=== PATIENT | male | born 2000 | race African-American/Black ===

== ENCOUNTER 2022-09-11 08:31 | Emergency (ER) | payer MEDICAID ==
[~2022-09-11] VITALS: Ht 200 cm; Wt 189.0 kg
[~2022-09-11 08:31] MED LIST: AC325T PO; ACET500C4 PO; ALB0.5V; ALBU0.8322 IH; ALBU8.5H2 INH; AUGMENTIN; AZIT-21 PO; AZIT250T81 PO; BENZ100C18 PO; BISM1CAP PO; CEFD300C16 PO; CEFD300C3 PO; CETI10CA PO; CETI10TA17 PO; CETI1SOL11; CIPR7.5D2 OT; CPR500T PO; DEXM15CP PO; EAR DROPS; ERYTHROMYCIN; FAMO-106 PO; FLT05NA16; FLT05NA16 NS; FLT11013 IH; FLT11013 INH; FLUT50DI INH; GUAI100S PO; IBP200T PO; IBP800T PO; IBUP120O2 PO; LVB125NB3 INH; METH4TAB PO; MONT5TAB11 PO; NAPR-689 PO; NF-OLOP5ML OU; NF-XOP-HFA IH; OMEP40CA36 PO; ONDA4TAB11 PO; OXCA300T PO; PATANOL; PATANOL OU; PATENOL OU; POLY119P PO; POLY255P PO; POTA10CA43 PO; PRD20T PO; PRED50TA PO; PROM25SU8 PR; RNT150T PO; RT-FLOV110 INH; TRAM50TA2 PO; [UNRECOGNIZED DRUG - CODE] INH; [UNRECOGNIZED DRUG - CODE] PO
[2022-09-11 08:46] VITALS: BP 137/81
[2022-09-11] MEDS ORDERED: TETANUS,DIPTH,PERTUSS P/F (BOOSTRIX) 0.5 ML VIAL IM ONE (09:15)
[2022-09-11] MEDS ORDERED: DOXY-444 PO (09:17)
--- NOTE | 2022-09-11 09:18 | ED Lower Extremity ---
General Chief Complaint: Lower Extremity Stated Complaint: RT FOOT INJ | STEPPED ON GLASS Nursing Triage Note: PT AMB TO FT1 WITH COMPLAINT OF GLASS IN RIGHT FOOT. STATES STEPPED ON GLASS ABOUT AN HOUR [employer] AND IS CONCERNED THERE IS STILL A PIECE IN FOOT. Source: patient Exam Limitations: no limitations History of Present Illness Date Seen by Provider: Sep 11, 2022 Time Seen by Provider: 09:00 Initial Comments 21-year-old male presents for right foot injury. He has laceration plantar surface of his foot when he stepped on glass this morning from a broken jar. He denies any other injury. He is unsure when his last tetanus shot was. Mother states she saw glass in there she "got it all out." Allergies and Home Medications Allergies Coded Allergies: Penicillins (Verified Allergy, Mild, 11/03/12) Patient Home Medication List Home Medication List Reviewed: Yes Acetaminophen (Pain Reliever) 500 Mg Capsule, 1,000 MG PO Q8H PRN for PAIN, (Reported) Entered as Reported by: ANJALI CHAPA on 07/31/14 1622 Cetirizine Hcl (Zyrtec) 10 Mg Capsule, 10 MG PO DAILY, (Reported) Entered as Reported by: CHEYENNE NATION on 11/03/12 1728 Dexmethylphenidate Hcl (Focalin Xr) 15 Mg Cpmp.50.50, 15 MG PO DAILY, (Reported) Entered as Reported by: ELENO PERALTA on 07/13/14 1525 Doxycycline Monohydrate (Doxycycline Monohydrate) 100 Mg Capsule, 100 MG PO BID Prescribed by: SHAMA ABDULLAHI MD on 09/11/22 0917 Fluticasone Propionate (Flonase 0.05% Nasal [place]) 16 Gm [place], 2 SPRAYS NS BID PRN for ALLERGIES, (Reported) Entered as Reported by: KEITH ERNST on 12/07/13 1446 Fluticasone Propionate (Flovent 110 Mcg Common Canister) 1 Puff Puff, 4 PUFF INH BID, (Reported) Entered as Reported by: KEITH ERNST on 12/07/13 1446 Levalbuterol Hcl (Xopenex) 1.25 Mg/3 Ml Nebu, 1 VIAL INH Q4H PRN for SHORTNESS OF BREATH, (Reported) Entered as Reported by: ARMEN SPEARS on 11/05/12 1117 Levalbuterol Tartrate (Xopenex Hfa) 15 Gm Aer.w.adap, 4 PUFF IH Q4H PRN for SHORTNESS OF BREATH, (Reported) Entered as Reported by: ANJALI CHAPA on 07/31/14 1612 Montelukast Sodium (Singulair) 5 Mg Tab.chew, 5 MG PO DAILY, (Reported) Entered as Reported by: ARMEN SPEARS on 11/05/12 1109 Naproxen (Naproxen) 500 Mg Tablet, 500 MG PO BID PRN for PAIN/SWELLING, (Reported) Entered as Reported by: ANJALI CHAPA on 07/31/14 1603 Olopatadine Hcl (Patanol 0.1%) 5 Ml Drops, 2 DROP OU BID PRN for ALLERGIES, (Reported) Entered as Reported by: ANJALI CHAPA on 07/31/14 1622 Omeprazole (Omeprazole) 40 Mg Capsule.dr, 40 MG PO BID, (Reported) Entered as Reported by: KEITH ERNST on 12/07/13 1446 Ondansetron (Ondansetron Odt) 4 Mg Tab.rapdis, 4 MG PO Q8H PRN for NAUSEA, (Reported) Entered as Reported by: ANJALI CHAPA on 07/31/14 160 Oxcarbazepine (Oxcarbazepine) 300 Mg Tablet, 600 MG PO 0900, 2100, (Reported) Entered as Reported by: ELENO PERALTA on 07/13/14 1525 Polyethylene Glycol 3350 (Polyethylene Glycol 3350) 255 Gm Powder, 119 GM PO D AILY, (Reported) Entered as Reported by: ANJALI CHAPA on 08/17/14 1616 Potassium Chloride (Potassium Chloride 10 Meq Cap) 10 Meq Capsule.sa, 10 MEQ PO DAILY WITH FOOD, (Reported) Entered as Reported by: KEITH ERNST on 12/07/13 1446 Promethazine Hcl (Promethegan) 25 Mg Supp.rect, 12.5 MG ID Q6H PRN for NAUSEA/V OMITING, (Reported) Entered as Reported by: ANJALI CHAPA on 07/31/14 1603 Review of Systems Constitutional: no symptoms reported EENTM: no symptoms reported Respiratory: no symptoms reported Cardiovascular: no symptoms reported Gastrointestinal: no symptoms reported Genitourinary: no symptoms reported Musculoskeletal: other (Foot laceration) Skin: other (Foot laceration) Psychiatric/Neurological: No Symptoms Reported Past Teztxts-Jlnicz-Eaeeri Hx Patient Social History Tobacco Use?: No Use of E-Cig and/or Vaping dev: No Substance use?: No Alcohol Use?: No Pt feels they are or have been: No Immunizations Up To Date Tetanus Booster (TDap): Less than 5yrs PED Vaccines UTD: Yes Seasonal Allergies Seasonal Allergies: Yes Past Medical History Asthma, Pneumonia Reproductive Disorders: No Sexually Transmitted Disease: No HIV/AIDS: No Fibromyalgia Chronic Ear Infection, Tonsilitis Anxiety, Depression Adverse Reaction/Blood Tranf: No Family Medical History Asthma 19 FATHER 19 MOTHER Cardiovascular disease 19 FATHER Cervical ca Cervical cancer Diabetes mellitus 19 FATHER No Pertinent Family Hx Physical Exam Vital Signs Vital Signs - First Documented 09/11/22 08:46 Temp 36.8 Pulse 73 Resp 16 B/P (MAP) 137/81 (99) Pulse Ox 100 O2 Delivery Room Air Capillary Refill : Less Than 3 Seconds Height, Weight, BMI Height: 5'10.00" Weight: 254lbs. 2.0oz. 115.366331uc; 47.00 BMI Method:Stated General Appearance: WD/WN, no apparent distress HEENT: normal ENT inspection, pharynx normal Neck: non-tender, supple Cardiovascular: regular rate, rhythm, no murmur Respiratory: lungs clear, normal breath sounds Gastrointestinal: normal bowel sounds, soft, no organomegaly Feet: right foot soft tissue tenderness (1 cm laceration plantar surface of the left foot in sole of the foot. Neurovascular motor and sensory intact. Very superficial.) Neurologic/Psychiatric: alert, normal mood/affect, oriented x 3 Skin: other (Laceration as described above) Progress/Results/Core Measures Results/Orders My Orders Orders - SHAMA ABDULLAHI DO Dipht,Pertuss(Acell),Tet Adult (Boostrix (09/11/22 09:15) Medications Given in ED Current Medications Medications Dose Ordered Sig/Joey Route Start Time Stop Time Status Last Admin Dose Admin Diphtheria/ Tetanus/Acell Pertussis 0.5 ml ONCE ONCE IM 09/11/22 09:15 09/11/22 09:16 DC 09/11/22 09:31 0.5 ML Vital Signs/I&O 09/11/22 08:46 Temp 36.8 Pulse 73 Resp 16 B/P (MAP) 137/81 (99) Pulse Ox 100 O2 Delivery Room Air Blood Pressure Mean: 99 Departure Communication (Admissions) Patient is hemodynamically stable. Does not require stitches. No indication for tenderness, bony involvement. No evidence for retained foreign body. No indication for imaging. Wound cleansed, tetanus updated he is discharged with antibiotics and close follow-up. Impression Primary Impression: Laceration of right foot Qualified Codes: S91.311A - Laceration without foreign body, right foot, initial encounter Disposition: HOME, SELF-CARE Condition: Stable Departure-Patient Inst. Referrals: DOUG BALDERAS MD (PCP/Family) Primary Care Physician Patient Instructions: Wound Care ED Add. Discharge Instructions: Your tetanus shot was updated in the emergency department today. Your wound does not require stitches but keep it clean. You may shower as normal but do not submerge tomorrow like hot tabs or swimming pools. Take the antibiotics as prescribed until they are gone to avoid infection. Return to the emergency department for any severe concerns, specifically if you have redness that spreading from the area, drainage looks like pus. Follow-up with your primary doctor for any nonemergent needs. All discharge instructions reviewed with patient and/or family. Voiced understanding. Scripts Doxycycline Monohydrate (Doxycycline Monohydrate) 100 Mg Capsule 100 MG PO BID for 7 Days, #14 CAP Prov: SHAMA ABDULLAHI DO 09/11/22 Work/School Note: Family Work Note Patient Received Medical Care In the Emergency Department On: Sep 11, 2022 Patient Will Be Able to Return to Work/School On: Sep 11, 2022 SHAMA ABDULLAHI DO Sep 11, 2022 09:18
== END 2022-09-11 09:35 | disposition home or self-care (01) ==
LOC: EDUNIT# 08:31 → ER 08:35
DX: S91.311A Laceration without foreign body, right foot, initial encounter (principal); Z23 Encounter for immunization; W25.XXXA Contact with sharp glass, initial encounter
CPT/HCPCS: 90715

== ENCOUNTER 2023-05-20 00:31 | Emergency (ER) | payer MEDICAID ==
[~2023-05-20] VITALS: Ht 195 cm; Wt 186.8 kg
[~2023-05-20 00:31] MED LIST changes: +DOXY-444 PO
[2023-05-20 00:45] VITALS: BP 176/110
[2023-05-20] MEDS ORDERED: LACTATED RINGERS 1,000 ML 1,000 ML IV ONE (01:00)
[2023-05-20 01:18] LABS: BASOPHILS % (AUTO) 0 % (0-10); EOSINOPHILS # (AUTO) 0.1 10^3/uL (0.0-0.3); EOSINOPHILS % (AUTO) 1 % (0-10); HEMATOCRIT 49 % (40-54); HEMOGLOBIN 15.2 g/dL (13.3-17.7); LYMPHOCYTES # (AUTO) 2.7 10^3/uL (1.0-4.0); LYMPHOCYTES % (AUTO) 26 % (12-44); MEAN CORPUSCULAR HEMOGLOBIN 26 pg (25-34); MEAN CORPUSCULAR HGB CONC 31 g/dL (32-36); MEAN CORPUSCULAR VOLUME 85 fL (80-99); MEAN PLATELET VOLUME 11.8 fL (9.0-12.2); MONOCYTES # (AUTO) 1.1 10^3/uL (0.0-1.0); MONOCYTES % (AUTO) 11 % (0-12); NEUTROPHILS # (AUTO) 6.3 10^3/uL (1.8-7.8); NEUTROPHILS % (AUTO) 61 % (42-75); PLATELET COUNT 253 10^3/uL (130-400); WHITE BLOOD COUNT 10.2 10^3/uL (4.3-11.0)
[2023-05-20 01:41] LABS: ALBUMIN 4.3 GM/DL (3.2-4.5); BILIRUBIN,TOTAL 0.3 MG/DL (0.1-1.0); CALCIUM 9.3 MG/DL (8.5-10.1); CREATININE SERUM 1.08 MG/DL (0.60-1.30); ERYTHROCYTE SEDIMENTATION RATE 1 MM/HR (0-15); MAGNESIUM 2.2 MG/DL (1.6-2.4); POTASSIUM 5.1 MMOL/L (3.6-5.0); TOTAL PROTEIN 7.4 GM/DL (6.4-8.2)
[2023-05-20] MEDS ORDERED: NS 100 ML (IVPB) BAG IV ONE (02:15)
[2023-05-20] MEDS ORDERED: HOLD METFORMIN - RECEIVED CONTRAST 20 ML VIAL IV SCH (02:15)
[2023-05-20] MEDS ORDERED: IOHEXOL 350 MG/ML 100 ML (OMNIPAQUE 350) VIAL IV ONE (02:15)
[2023-05-20 02:30] LABS: BACTERIA,URINE NEGATIVE /HPF; BILIRUBIN,URINE NEGATIVE (NEGATIVE); CLARITY,URINE CLEAR; COLOR,URINE YELLOW; GLUCOSE, URINE (UA) NEGATIVE (NEGATIVE); KETONES,URINE NEGATIVE (NEGATIVE); LEUKOCYTE ESTERASE ,URINE NEGATIVE (NEGATIVE); NITRITE,URINE NEGATIVE (NEGATIVE); PROTEIN,URINE NEGATIVE (NEGATIVE)
[2023-05-20 02:33] LABS: AMPHETAMINE SCREEN, URINE NEGATIVE (NEGATIVE); BARBITURATE SCREEN URINE NEGATIVE (NEGATIVE); BENZODIAZEPINES SCREEN URINE NEGATIVE (NEGATIVE); CANNABINOID SCREEN, URINE POSITIVE (NEGATIVE); COCAINE SCREEN URINE NEGATIVE (NEGATIVE); METHADONE STAT NEGATIVE (NEGATIVE); OPIATE SCREEN URINE NEGATIVE (NEGATIVE); OXYCODONE STAT NEGATIVE (NEGATIVE); PROPOXYPHENE STAT NEGATIVE (NEGATIVE); TRICYCLIC ANTIDEPRESSANTS SCRE NEGATIVE (NEGATIVE)
--- NOTE | 2023-05-20 03:25 | ED Abdominal Pain ---
General Chief Complaint: Abdominal/GI Problems Stated Complaint: ABD PX Nursing Triage Note: PATIENT AMBULATORY TO ROOM WITH COMPLAINT OF ABDOMINAL PAIN THAT WOKE HIM FROM SLEEP. STATES AROUND 2140 LAST NIGHT. DENIES VOMITTING/DIARRHEA. PATIENT DOES STATE HE IS NAUSEATED. Source of Information: Patient, Other (MOTHRE) History of Present Illness Date Seen by Provider: May 20, 2023 Allergies and Home Medications Allergies Coded Allergies: Penicillins (Verified Allergy, Mild, 11/03/12) Patient Home Medication List Acetaminophen (Pain Reliever) 500 Mg Capsule, 1,000 MG PO Q8H PRN for PAIN, (Reported) Entered as Reported by: ANJALI CHAPA on 07/31/14 1622 Cetirizine Hcl (Zyrtec) 10 Mg Capsule, 10 MG PO DAILY, (Reported) Entered as Reported by: CHEYENNE NATION on 11/03/12 1728 Dexmethylphenidate Hcl (Focalin Xr) 15 Mg Cpmp.50.50, 15 MG PO DAILY, (Reported) Entered as Reported by: ELENO PERALTA on 07/13/14 1525 Doxycycline Monohydrate (Doxycycline Monohydrate) 100 Mg Capsule, 100 MG PO BID Prescribed by: SHAMA ABDULLAHI MD on 09/11/22 0917 Fluticasone Propionate (Flonase 0.05% Nasal [place]) 16 Gm [place], 2 SPRAYS NS BID PRN for ALLERGIES, (Reported) Entered as Reported by: KEITH ERNST on 12/07/13 1446 Fluticasone Propionate (Flovent 110 Mcg Common Canister) 1 Puff Puff, 4 PUFF INH BID, (Reported) Entered as Reported by: KEITH ERNST on 12/07/13 1446 Levalbuterol Hcl (Xopenex) 1.25 Mg/3 Ml Nebu, 1 VIAL INH Q4H PRN for SHORTNESS OF BREATH, (Reported) Entered as Reported by: ARMEN SPEARS on 11/05/12 1117 Levalbuterol Tartrate (Xopenex Hfa) 15 Gm Aer.w.adap, 4 PUFF IH Q4H PRN for SHORTNESS OF BREATH, (Reported) Entered as Reported by: ANJALI CHAPA on 07/31/14 1612 Montelukast Sodium (Singulair) 5 Mg Tab.chew, 5 MG PO DAILY, (Reported) Entered as Reported by: ARMEN SPEARS on 11/05/12 1109 Naproxen (Naproxen) 500 Mg Tablet, 500 MG PO BID PRN for PAIN/SWELLING, ( Reported) Entered as Reported by: ANJALI CHAPA on 07/31/14 1603 Olopatadine Hcl (Patanol 0.1%) 5 Ml Drops, 2 DROP OU BID PRN for ALLERGIES, (Reported) Entered as Reported by: ANJALI CHAPA on 07/31/14 1622 Omeprazole (Omeprazole) 40 Mg Capsule.dr, 40 MG PO BID, (Reported) Entered as Reported by: KEITH ERNST on 12/07/13 1446 Ondansetron (Ondansetron Odt) 4 Mg Tab.rapdis, 4 MG PO Q8H PRN for NAUSEA, (Re ported) Entered as Reported by: ANJALI CHAPA on 07/31/14 1603 Oxcarbazepine (Oxcarbazepine) 300 Mg Tablet, 600 MG PO 0900, 2100, (Reported) Entered as Reported by: ELENO PERALTA on 07/13/14 1525 Polyethylene Glycol 3350 (Polyethylene Glycol 3350) 255 Gm Powder, 119 GM PO DAILY, (Reported) Entered as Reported by: ANJALI CHAPA on 08/17/14 1616 Potassium Chloride (Potassium Chloride 10 Meq Cap) 10 Meq Capsule.sa, 10 MEQ PO DAILY WITH FOOD, (Reported) Entered as Reported by: KEITH ERNST on 12/07/13 1446 Promethazine Hcl (Promethegan) 25 Mg Supp.rect, 12.5 MG MA Q6H PRN for NAUSEA/VOMITING, (Reported) Entered as Reported by: ANJALI CHAPA on 07/31/14 1603 Past Zczmhtm-Vnvhyq-Udsjql Hx Patient Social History Tobacco Use?: Yes Tobacco type used: Cigarettes Smoking Status: Current Everyday Smoker Alcohol Use?: Yes Alcohol type: Beer Alcohol Frequency: Couple times a week Immunizations Up To Date Tetanus Booster (TDap): Less than 5yrs PED Vaccines UTD: Yes Seasonal Allergies Seasonal Allergies: Yes Past Medical History Surgery/Hospitalization HX: T/A, AUTISTIC, DEPRESSION, SOCIAL ANXIETY, IBS, GURD, CHRONIC BODY ACHES Asthma, Pneumonia Reproductive Disorders: No Sexually Transmitted Disease: No HIV/AIDS: No Fibromyalgia Chronic Ear Infection, Tonsilitis Anxiety, Depression Adverse Reaction/Blood Tranf: No Family Medical History Asthma 19 FATHER 19 MOTHER Cardiovascular disease 19 FATHER Cervical ca Cervical cancer Diabetes mellitus 19 FATHER No Pertinent Family Hx Physical Exam Vital Signs Vital Signs - First Documented 05/20/23 00:45 Temp 37.0 Pulse 76 Resp 20 B/P (MAP) 176/110 (132) Pulse Ox 100 O2 Delivery Nasal Cannula Capillary Refill : Less Than 3 Seconds Height/Weight/BMI Height: 5'10.00" Weight: 254lbs. 2.0oz. 115.921051uy; 49.00 BMI Method:Stated Progress/Results/Core Measures Results/Orders Lab Results Laboratory Tests Test 05/20/23 00:59 05/20/23 02:10 Range/Units White Blood Count 10.2 4.3-11.0 10^3/uL Red Blood Count 5.81 H 4.30-5.52 10^6/uL Hemoglobin 15.2 13.3-17.7 g/dL Hematocrit 49 40-54 % Mean Corpuscular Volume 85 80-99 fL Mean Corpuscular Hemoglobin 26 25-34 pg Mean Corpuscular Hemoglobin Concent 31 L 32-36 g/dL Red Cell Distribution Width 14.1 10.0-14.5 % Platelet Count 253 130-400 10^3/uL Mean Platelet Volume 11.8 9.0-12.2 fL Immature Granulocyte % (Auto) 0 % Neutrophils (%) (Auto) 61 42-75 % Lymphocytes (%) (Auto) 26 12-44 % Monocytes (%) (Auto) 11 0-12 % Eosinophils (%) (Auto) 1 0-10 % Basophils (%) (Auto) 0 0-10 % Neutrophils # (Auto) 6.3 1.8-7.8 10^3/uL Lymphocytes # (Auto) 2.7 1.0-4.0 10^3/uL Monocytes # (Auto) 1.1 H 0.0-1.0 10^3/uL Eosinophils # (Auto) 0.1 0.0-0.3 10^3/uL Basophils # (Auto) 0.0 0.0-0.1 10^3/uL Immature Granulocyte # (Auto) 0.0 0.0-0.1 10^3/uL Erythrocyte Sedimentation Rate 1 0-15 MM/HR Sodium Level 139 135-145 MMOL/L Potassium Level 5.1 H 3.6-5.0 MMOL/L Chloride Level 106 98-107 MMOL/L Carbon Dioxide Level 20 L 21-32 MMOL/L Anion Gap 13 5-14 MMOL/L Blood Urea Nitrogen 13 7-18 MG/DL Creatinine 1.08 0.60-1.30 MG/DL Estimat Glomerular Filtration Rate 100 BUN/Creatinine Ratio 12 Glucose Level 98 70-105 MG/DL Calcium Level 9.3 8.5-10.1 MG/DL Corrected Calcium 9.1 8.5-10.1 MG/DL Magnesium Level 2.2 1.6-2.4 MG/DL Total Bilirubin 0.3 0.1-1.0 MG/DL Aspartate Amino Transf (AST/SGOT) 23 5-34 U/L Alanine Aminotransferase (ALT/SGPT) 46 0-55 U/L Alkaline Phosphatase 55 40-136 U/L C-Reactive Protein High Sensitivity 0.35 0.00-0.50 MG/DL Total Protein 7.4 6.4-8.2 GM/DL Albumin 4.3 3.2-4.5 GM/DL Amylase Level 24 L 25-125 U/L Lipase 24 8-78 U/L Urine Color YELLOW Urine Clarity CLEAR Urine pH 6.0 5-9 Urine Specific [place] 1.010 L 1.016-1.022 Urine Protein NEGATIVE NEGATIVE Urine Glucose (UA) NEGATIVE NEGATIVE Urine Ketones NEGATIVE NEGATIVE Urine Nitrite NEGATIVE NEGATIVE Urine Bilirubin NEGATIVE NEGATIVE Urine Urobilinogen 0.2 < = 1.0 MG/DL Urine Leukocyte Esterase NEGATIVE NEGATIVE Urine RBC (Auto) NEGATIVE NEGATIVE Urine RBC NONE /HPF Urine WBC NONE /HPF Urine Crystals NONE /LPF Urine Bacteria NEGATIVE /HPF Urine Casts NONE /LPF Urine Mucus NEGATIVE /LPF Urine Culture Indicated NO Urine Opiates Screen NEGATIVE NEGATIVE Urine Oxycodone Screen NEGATIVE NEGATIVE Urine Methadone Screen NEGATIVE NEGATIVE Urine Propoxyphene Screen NEGATIVE NEGATIVE Urine Barbiturates Screen NEGATIVE NEGATIVE Ur Tricyclic Antidepressants Screen NEGATIVE NEGATIVE Urine Phencyclidine Screen NEGATIVE NEGATIVE Urine Amphetamines Screen NEGATIVE NEGATIVE Urine Methamphetamines Screen NEGATIVE NEGATIVE Urine Benzodiazepines Screen NEGATIVE NEGATIVE Urine Cocaine Screen NEGATIVE NEGATIVE Urine Cannabinoids Screen POSITIVE H NEGATIVE My Orders Orders - FINESSE SAAVEDRA DO Ed Iv/Invasive Line Start (05/20/23 00:49) Monitor-Rhythm Ecg Trace Only (05/20/23 00:49) Ct Abd/Pelv W (Appendicitis) (05/20/23 00:49) Amylase (05/20/23 00:49) Cbc With Automated Diff (05/20/23 00:49) Comprehensive Metabolic Panel (05/20/23 00:49) Hs C Reactive Protein (05/20/23 00:49) Drug Screen Stat (Urine) (05/20/23 00:49) Lipase (05/20/23 00:49) Magnesium (05/20/23 00:49) Ua Culture If Indicated (05/20/23 00:49) Erythrocyte Sedimentation Rate (05/20/23 00:49) Ed Iv/Invasive Line Start (05/20/23 00:49) Lactated Ringers 1,000 Ml (Lactated Ring (05/20/23 01:00) Iohexol Injection (Omnipaque 350 Mg/Ml 1 (05/20/23 02:15) Received Contrast (Hold Metformin- Contr (05/20/23 02:15) Ns (Ivpb) 100 Ml (Sodium Chloride 0.9% 1 (05/20/23 02:15) Medications Given in ED Current Medications Medications Dose Ordered Sig/Joey Route Start Time Stop Time Status Last Admin Dose Admin Iohexol 100 ml ONCE ONCE IV 05/20/23 02:15 05/20/23 02:17 DC 05/20/23 02:14 100 ML Lactated Ringer's 1,000 ml @ 0 mls/hr Q0M ONCE IV 05/20/23 01:00 05/20/23 01:01 DC 05/20/23 01:20 0 MLS/HR Sodium Chloride 100 ml ONCE ONCE IV 05/20/23 02:15 05/20/23 02:17 DC 05/20/23 02:14 80 ML Vital Signs/I&O 05/20/23 00:45 Temp 37.0 Pulse 76 Resp 20 B/P (MAP) 176/110 (132) Pulse Ox 100 O2 Delivery Nasal Cannula Blood Pressure Mean: 132 Progress Progress Note : Progress Note PAIN RESOLVED SHORTLY AFTER ARRIVAL MARKED DELAY IN OBTAINING CT REPORT Departure Impression Primary Impression: Cholelithiasis Disposition: 01 HOME, SELF-CARE Condition: Improved Departure-Patient Inst. Decision time for Depature: 05:15 Referrals: TEJAS BRAVO MD, JULIE A MD (PCP/Family) Primary Care Physician Patient Instructions: Gallbladder Diet, Gallstones ED Add. Discharge Instructions: HOME, REST FOLLOW GALLBLADDER DIET FOLLOW UP WITH DR. BRAVO OR SURGEON OF CHOICE NEXT WEEK FOR FURTHER CARE--CALL ON SUNDAY MORNING TO SCHEDULE AN APPOINTMENT All discharge instructions reviewed with patient and/or family. Voiced understanding. FINESSE SAAVEDRA DO May 20, 2023 03:25
--- NOTE | 2023-05-20 06:47 | Diagnostic Imaging Report ---
PROCEDURE: CT abdomen and pelvis with contrast, rule out appendicitis. TECHNIQUE: Multiple contiguous axial images were obtained through the abdomen and pelvis after the administration of intravenous contrast. All CT scans use one or more of the following dose optimizing techniques: automated exposure control, MA and/or KvP adjustment based on patient size and exam type or iterative reconstruction. Date: May 20, 2023. Indication: 22-year-old male, right lower quadrant abdominal pain. Comparisons: CT abdomen pelvis October 22, 2013. Findings: The visualized portions of the lung bases are clear. The heart is not enlarged. There is no identified pericardial effusion. The liver is unremarkable in size and contour. There is no identified liver lesion. The main, right, and left portal veins are patent. There is cholelithiasis without evidence of acute cholecystitis. There is no biliary ductal dilation. The main pancreatic duct is not abnormally dilated. Unremarkable appearance of the pancreatic parenchyma. There is an accessory splenule on axial image 31. The spleen is normal in size. The adrenal glands are unremarkable. Unremarkable appearance of the renal parenchyma. The urinary collecting systems are not distended. There is no identified renal or ureteral stone. Urinary bladder is unremarkable. The intestinal tract is not distended. There is no evidence of acute appendicitis. There is no free intraperitoneal air. There is no drainable fluid collection. There is no free fluid in the abdomen or pelvis. There is no identified abnormally enlarged lymph node in the abdomen or pelvis which meets CT size criteria for adenopathy. There is no identified acute bony abnormality. Impression: 1. Cholelithiasis without evidence of acute cholecystitis. 2. No biliary ductal dilation. 3. No evidence of acute appendicitis. No otherwise identified acute abnormality in the abdomen or pelvis. Dictated by: Dictated on workstation # [id number]
== END 2023-05-20 05:30 | disposition home or self-care (01) ==
LOC: EDUNIT# 00:31 → ER 00:35
DX: K80.20 Calculus of gallbladder without cholecystitis without obstruction (principal); F17.210 Nicotine dependence, cigarettes, uncomplicated
CPT/HCPCS: 36415; 74177; 80053; 80306; 81000; 82150; 83690; 83735; 85025; 85652; 86141

== ENCOUNTER 2023-05-27 21:21 | Emergency (ER) | payer MEDICAID ==
[~2023-05-27] VITALS: Ht 195 cm; Wt 186.0 kg
--- NOTE | 2023-05-27 21:37 | ED Abdominal Pain ---
General Stated Complaint: AB PAIN Source of Information: Patient Exam Limitations: No Limitations (SHANNAN JEFFERSON) History of Present Illness Date Seen by Provider: May 27, 2023 Time Seen by Provider: 21:39 Initial Comments Patient is a 22-year-old male history of IBS, asthma, fibromyalgia who presents ED mother for generalized abdominal pain. This pain started around 740 this p.m. when patient woke up. [place] nauseous vomited once. Had a soft bowel movement today. History of constipation. Patient does take Linzess. no urinary symptoms, cough, chest pain short of breath or fever. The pain does not radiate. Denies taking thing for the pain. Patient was seen here on May [address] scan of his abdomen pelvis which showed cholelithiasis without evidence of cholecystitis.. Patient has not followed up outpatient with general surgery. Patient has had no pain since May 20. Patient states he feels bloated and gassy. Reports history of GERD, asthma, autism. Patient with normal urination. Patient smokes periodically and drinks periodically as well. Patient denies fever, chills, body aches, headache, dizziness (SHANNAN JEFFERSON) Allergies and Home Medications Allergies Coded Allergies: Penicillins (Verified Allergy, Mild, 11/03/12) Patient Home Medication List Home Medication List Reviewed: Yes (ELSIE TILLEY MD) Acetaminophen (Pain Reliever) 500 Mg Capsule, 1,000 MG PO Q8H PRN for PAIN, (Reported) Entered as Reported by: ANJALI CHAPA on 07/31/14 1622 Cetirizine Hcl (Zyrtec) 10 Mg Capsule, 10 MG PO DAILY, (Reported) Entered as Reported by: [place] N[place] on 11/03/12 1728 Dexmethylphenidate Hcl (Focalin Xr) 15 Mg Cpmp.50.50, 15 MG PO DAILY, (Reported) Entered as Reported by: ELENO PERALTA on 07/13/14 1525 Dicyclomine HCl (Dicyclomine HCl) 20 Mg Tablet, 20 MG PO QIDACHS PRN for abdominal pain Prescribed by: ELSIE TILLEY on 05/28/23 0018 Doxycycline Monohydrate (Doxycycline Monohydrate) 100 Mg Capsule, 100 MG PO BID Prescribed by: SHAMA ABDULLAHI MD on 09/11/22 0917 Fluticasone Propionate (Flonase 0.05% Nasal [place]) 16 Gm [place], 2 SPRAYS NS BID PRN for ALLERGIES, (Reported) Entered as Reported by: KEITH ERNST on 12/07/13 1446 Fluticasone Propionate (Flovent 110 Mcg Common Canister) 1 Puff Puff, 4 PUFF INH BID, (Reported) Entered as Reported by: KEITH ERNST on 12/07/13 1446 Levalbuterol Hcl (Xopenex) 1.25 Mg/3 Ml Nebu, 1 VIAL INH Q4H PRN for SHORTNESS OF BREATH, (Reported) Entered as Reported by: ARMEN SPEARS on 11/05/12 1117 Levalbuterol Tartrate (Xopenex Hfa) 15 Gm Aer.w.adap, 4 PUFF IH Q4H PRN for SHORTNESS OF BREATH, (Reported) Entered as Reported by: ANJALI CHAPA on 07/31/14 1612 Montelukast Sodium (Singulair) 5 Mg Tab.chew, 5 MG PO DAILY, (Reported) Entered as Reported by: ARMEN SPEARS on 11/05/12 1109 Naproxen (Naproxen) 500 Mg Tablet, 500 MG PO BID PRN for PAIN/SWELLING, (Reported) Entered as Reported by: ANJALI CHAPA on 07/31/14 1603 Olopatadine Hcl (Patanol 0.1%) 5 Ml Drops, 2 DROP OU BID PRN for ALLERGIES, (Reported) Entered as Reported by: ANJALI CHAPA on 07/31/14 1622 Omeprazole (Omeprazole) 40 Mg Capsule.dr, 40 MG PO BID, (Reported) Entered as Reported by: KEITH ERNST on 12/07/13 1446 Ondansetron (Ondansetron Odt) 4 Mg Tab.rapdis, 4 MG PO Q8H PRN for NAUSEA, (Reported) Entered as Reported by: ANJALI CHAPA on 07/31/14 1603 Ondansetron (Ondansetron Odt) 4 Mg Tab.rapdis, 4 MG SL Q8H PRN for NAUSEA/VOMITING Prescribed by: ELSIE TILLEY on 05/28/23 0018 Oxcarbazepine (Oxcarbazepine) 300 Mg Tablet, 600 MG PO 0900, 2100, (Reported) Entered as Reported by: ELENO PERALTA on 07/13/14 1525 Polyethylene Glycol 3350 (Polyethylene Glycol 3350) 255 Gm Powder, 119 GM PO DAILY, (Reported) Entered as Reported by: ANJALI CHAPA on 08/17/14 1616 Potassium Chloride (Potassium Chloride 10 Meq Cap) 10 Meq Capsule.sa, 10 MEQ PO DAILY WITH FOOD, (Reported) Entered as Reported by: KEITH ERNST on 12/07/13 1446 Promethazine Hcl (Promethegan) 25 Mg Supp.rect, 12.5 MG [place] Q6H PRN for NAUSEA/VOMITING, (Reported) Entered as Reported by: ANJALI CHAPA on 07/31/14 1603 Review of Systems Review of Systems Constitutional: No chills, No diaphoresis, No malaise, No weakness EENTM: No Eye Pain Respiratory: Denies Cough Cardiovascular: Denies Chest Pain Gastrointestinal: Abdominal Pain; Denies Constipated; Nausea, Vomiting Genitourinary: Denies Burning, Denies Discharge Musculoskeletal: No back pain, No joint pain Skin: No change in color (SHANNAN JEFFERSON) All Other Systems Reviewed Negative Unless Noted: Yes (SHANNAN JEFFERSON) Past Bbqxzuc-Ecszfh-Eqvuev Hx Immunizations Up To Date Tetanus Booster (TDap): Less than 5yrs PED Vaccines UTD: Yes (SHANNAN JEFFERSON) Seasonal Allergies Seasonal Allergies: Yes (SHANNAN JEFFERSON) Past Medical History Surgery/Hospitalization HX: T/A, AUTISTIC, DEPRESSION, SOCIAL ANXIETY, IBS, GERD, CHRONIC BODY ACHES Surgeries: Yes (T&A; BMT'S) Adenoidectomy, Ear Surgery, Tonsillectomy Respiratory: Yes Asthma, Pneumonia Cardiac: No Neurological: Yes (AUTISM) Developmental Disorder Reproductive Disorders: No Sexually Transmitted Disease: No HIV/AIDS: No Genitourinary: No Gastrointestinal: Yes Gastroesophageal Reflux, Irritable Bowel Musculoskeletal: Yes (CHRONIC BODY ACHES) Fibromyalgia Endocrine: Yes (OBESE) HEENT: Yes (S/P BMT'S AND T&A) Chronic Ear Infection, Tonsilitis Cancer: No Psychosocial: Yes (AUTISM) Anxiety, Depression Integumentary: No Adverse Reaction/Blood Tranf: No (SHANNAN JEFFERSON) Family Medical History Asthma 19 FATHER 19 MOTHER Cardiovascular disease 19 FATHER Cervical ca Cervical cancer Diabetes mellitus 19 FATHER No Pertinent Family Hx (SHANNAN JEFFERSON) Physical Exam Vital Signs Vital Signs - First Documented 05/27/23 21:29 Temp 36.3 Pulse 78 Resp 20 Pulse Ox 100 O2 Delivery Room Air (ELSIE TILLEY MD) Vital Signs Capillary Refill : (SHANNAN JEFFERSON) Height/Weight/BMI Height: 5'10.00" Weight: 254lbs. 2.0oz. 115.561538ud; 49.00 BMI Method:Stated General Appearance: WD/WN, no apparent distress HEENT: PERRL/EOMI, normal ENT inspection, TMs normal, pharynx normal Neck: non-tender, full range of motion, supple Respiratory: chest non-tender, lungs clear, normal breath sounds, no respiratory distress, no accessory muscle use Cardiovascular: regular rate, rhythm, no edema, no gallop, no JVD Gastrointestinal: normal bowel sounds, soft, no organomegaly, tenderness (Generalized tenderness. No rebound or guarding) Extremities: normal range of motion, non-tender, normal inspection, no pedal edema Back: normal inspection, no CVA tenderness Neurologic/Psychiatric: pickle processor II-XII nml as tested, no motor/sensory deficits, alert, normal mood/affect, oriented x 3 Skin: normal color, warm/dry (SHANNAN JEFFERSON) Progress/Results/Core Measures Results/Orders Lab Results Laboratory Tests Test 05/27/23 22:20 Range/Units White Blood Count 12.5 H 4.3-11.0 10^3/uL Red Blood Count 5.59 H 4.30-5.52 10^6/uL Hemoglobin 14.6 13.3-17.7 g/dL Hematocrit 47 40-54 % Mean Corpuscular Volume 84 80-99 fL Mean Corpuscular Hemoglobin 26 25-34 pg Mean Corpuscular Hemoglobin Concent 31 L 32-36 g/dL Red Cell Distribution Width 13.6 10.0-14.5 % Platelet Count 248 130-400 10^3/uL Mean Platelet Volume 11.1 9.0-12.2 fL Immature Granulocyte % (Auto) 0 % Neutrophils (%) (Auto) 73 42-75 % Lymphocytes (%) (Auto) 18 12-44 % Monocytes (%) (Auto) 9 0-12 % Eosinophils (%) (Auto) 1 0-10 % Basophils (%) (Auto) 0 0-10 % Neutrophils # (Auto) 9.1 H 1.8-7.8 10^3/uL Lymphocytes # (Auto) 2.2 1.0-4.0 10^3/uL Monocytes # (Auto) 1.1 H 0.0-1.0 10^3/uL Eosinophils # (Auto) 0.1 0.0-0.3 10^3/uL Basophils # (Auto) 0.0 0.0-0.1 10^3/uL Immature Granulocyte # (Auto) 0.1 0.0-0.1 10^3/uL Sodium Level 140 135-145 MMOL/L Potassium Level 4.7 3.6-5.0 MMOL/L Chloride Level 106 98-107 MMOL/L Carbon Dioxide Level 24 21-32 MMOL/L Anion Gap 10 5-14 MMOL/L Blood Urea Nitrogen 16 7-18 MG/DL Creatinine 1.17 0.60-1.30 MG/DL Estimat Glomerular Filtration Rate 91 BUN/Creatinine Ratio 14 Glucose Level 113 H 70-105 MG/DL Calcium Level 9.5 8.5-10.1 MG/DL Corrected Calcium 9.2 8.5-10.1 MG/DL Total Bilirubin 0.3 0.1-1.0 MG/DL Aspartate Amino Transf (AST/SGOT) 17 5-34 U/L Alanine Aminotransferase (ALT/SGPT) 39 0-55 U/L Alkaline Phosphatase 54 40-136 U/L C-Reactive Protein High Sensitivity 0.40 0.00-0.50 MG/DL Total Protein 7.3 6.4-8.2 GM/DL Albumin 4.4 3.2-4.5 GM/DL Lipase 19 8-78 U/L (ELSIE TILLEY MD) My Orders Orders - ELSIE TILLEY MD Sucralfate Tablet (Sucralfate Tablet) (05/27/23 23:45) Lidocaine 2% Viscous 15 Ml (Xylocaine Vi (05/27/23 23:45) Antacid Suspension (Antacid Suspension (05/27/23 23:45) Rx-Ondansetron Po (Rx-Zofran Po) (05/28/23 00:15) (ELSIE TILLEY MD) Medications Given in ED Current Medications Medications Dose Ordered Sig/Joey Route Start Time Stop Time Status Last Admin Dose Admin Al Hydrox/Mg Hydrox/Simethicone 30 ml ONCE ONCE PO 05/27/23 23:45 05/27/23 23:46 DC 05/27/23 23:55 30 ML Lidocaine HCl 5 ml ONCE ONCE PO 05/27/23 23:45 05/27/23 23:46 DC 05/27/23 23:55 5 ML Ondansetron HCl 4 mg STK-MED ONCE .ROUTE 05/27/23 22:22 05/27/23 22:24 DC 05/27/23 22:29 4 MG Pantoprazole 40 mg STK-MED ONCE .ROUTE 05/27/23 22:22 05/27/23 22:24 DC 05/27/23 22:31 40 MG Sucralfate 1 gm ONCE ONCE PO 05/27/23 23:45 05/27/23 23:46 DC 05/27/23 23:55 1 GM (ELSIE TILLEY MD) Vital Signs/I&O 05/27/23 21:29 Temp 36.3 Pulse 78 Resp 20 B/P (MAP) Pulse Ox 100 O2 Delivery Room Air (ELSIE TILLEY MD) Progress Progress Note : Time: 00:15 Progress Note Patient care assumed at shift change with UA pending. Patient resting fairly comfortably after medications provided by earlier provider. Patient attempted to give urine sample but was unable. States absolutely no urinary symptoms. He started to have return of epigastric pain and I gave a GI cocktail which seemed to alleviate his symptoms. Labs independently reviewed and interpreted by me - CBC normal, CH12 and lipase normal. As the patient had no fever, vomiting, ongoing pain - no abnormal labs, low clinical suspicion for acute cholecystitis. I discussed plan of care with the patient and his mother - who was at the bedside. Will send patient with rx for zofran and dicyclomine. I reviewed return precautions with the patient and strongly encouraged him to follow up with surgeon regarding symptoms and previously found gall stones. he verbalizes understanding of the plan of care. All questions are sought and answered - stable for discharge. (ELSIE TILLEY MD) Departure Communication (PCP) Reviewed previous ER visits, H&P, and lab work. Patient was seen here May 20 with a full work-up. Diagnosed with cholelithiasis. Has not followed up. Has been doing fine until this evening when he started having some generalized abdominal pain with episode of vomiting. History of IBS, asthma. Patient does take Linzess. History of constipation. Patient on arrival with stable vital signs besides slightly hypertensive. Generalized abdominal discomfort. He is afebrile. CBC, CMP, lipase urinalysis was initiated. Received a liter of fluid Zofran for nausea and a dose of pain medication for pain. Did receive a dose of Protonix. CBC showed slight elevated white blood count of 12. Chemistry was grossly unremarkable. Normal lipase, liver enzymes, kidney function and electrolytes. Patient was not able to provide a initial urinalysis. Reassuring lab work. Not concern for a obstructing gallstone with normal liver enzymes. N o evidence suggesting pancreatitis. Low suspicion for cholecystitis. Patient may biliary disease. Did obtain abdominal x-ray which did not show any large amount of stool, obstruction or free air. Patient pain appears to be improving. Does not appear surgical. May be form of gastritis as patient woke up with the pain. due to his recent CT scan with known cholelithiasis suggest outpatient follow-up with ultrasound, HIDA scan with general surgery. Patient was discussed with Dr. Tilley who continue monitoring patient after 11 PM to wait for urinalysis and monitor pain. (SHANNAN JEFFERSON) Impression Primary Impression: Abdominal pain Qualified Codes: R10.13 - Epigastric pain Additional Impression: History of cholelithiasis Disposition: 01 HOME, SELF-CARE Condition: Improved Departure-Patient Inst. Decision time for Depature: 00:16 (ELSIE TILLEY MD) Referrals: DOUG BALDERAS MD (PCP/Family) Primary Care Physician Patient Instructions: Gallstones (DC) Add. Discharge Instructions: Continue to drink plenty of fluids to stay well-hydrated. I have given you a prescription for ondansetron/Zofran. Take 1 to 2 tablets every 8 hours as needed for nausea. I have also given you a prescription for dicyclomine/Bentyl. Take 1 tablet 30 minutes before eating and 1 at bedtime. This should help prevent recurrence of belly pain associated with gallstones. If you develop a fever greater than 101 with worsening pain, vomiting or any other emergent, concerning symptoms please return to the emergency room for reevaluation. Please follow-up with the general surgeon as directed at your prior visit this week. Scripts Ondansetron (Ondansetron Odt) 4 Mg Tab.rapdis 4 MG SL Q8H PRN for NAUSEA/VOMITING, #20 TAB Prov: ELSIE TILLEY MD 05/28/23 Dicyclomine HCl (Dicyclomine HCl) 20 Mg Tablet 20 MG PO QIDACHS PRN for abdominal pain, #60 TAB Prov: ELSIE TILLEY MD 05/28/23 Copy Copies To 1: DOUG BALDERAS MD, ZACHARY A PA May 27, 2023 21:37 ELSIE TILLEY MD May 28, 2023 00:18
[2023-05-27] MEDS ORDERED: ONDANSETRON INJECTION 4 MG/2 ML (SDV) IVP ONE (21:45)
[2023-05-27] MEDS ORDERED: PANTOPRAZOLE INJECTION 40 MG VIAL IV ONE (21:45)
[2023-05-27] MEDS ORDERED: fentaNYL INJECTION 100 MCG/2 ML VIAL IVP STA (22:22)
[2023-05-27] MEDS ORDERED: PANTOPRAZOLE INJECTION 40 MG VIAL ONE (22:22)
[2023-05-27] MEDS ORDERED: ONDANSETRON INJECTION 4 MG/2 ML (SDV) ONE (22:22)
[2023-05-27 22:31] LABS: BASOPHILS % (AUTO) 0 % (0-10); EOSINOPHILS # (AUTO) 0.1 10^3/uL (0.0-0.3); EOSINOPHILS % (AUTO) 1 % (0-10); HEMATOCRIT 47 % (40-54); HEMOGLOBIN 14.6 g/dL (13.3-17.7); LYMPHOCYTES # (AUTO) 2.2 10^3/uL (1.0-4.0); LYMPHOCYTES % (AUTO) 18 % (12-44); MEAN CORPUSCULAR HEMOGLOBIN 26 pg (25-34); MEAN CORPUSCULAR HGB CONC 31 g/dL (32-36); MEAN CORPUSCULAR VOLUME 84 fL (80-99); MEAN PLATELET VOLUME 11.1 fL (9.0-12.2); MONOCYTES # (AUTO) 1.1 10^3/uL (0.0-1.0); MONOCYTES % (AUTO) 9 % (0-12); NEUTROPHILS # (AUTO) 9.1 10^3/uL (1.8-7.8); NEUTROPHILS % (AUTO) 73 % (42-75); PLATELET COUNT 248 10^3/uL (130-400); WHITE BLOOD COUNT 12.5 10^3/uL (4.3-11.0)
[2023-05-27 22:46] LABS: ALBUMIN 4.4 GM/DL (3.2-4.5); POTASSIUM 4.7 MMOL/L (3.6-5.0)
[2023-05-27 22:47] LABS: CALCIUM 9.5 MG/DL (8.5-10.1)
[2023-05-27 22:48] LABS: TOTAL PROTEIN 7.3 GM/DL (6.4-8.2)
[2023-05-27 22:50] LABS: BILIRUBIN,TOTAL 0.3 MG/DL (0.1-1.0)
[2023-05-27 22:52] LABS: CREATININE SERUM 1.17 MG/DL (0.60-1.30)
[2023-05-27] MEDS ORDERED: NS IV 1000 ML 1,000 ML IV STA (22:54)
[2023-05-27] MEDS ORDERED: NS IV 1000 ML 1,000 ML ONE (22:56)
[2023-05-27] MEDS ORDERED: ANTACID SUSPENSION 30 ML UDC PO ONE (23:45)
[2023-05-27] MEDS ORDERED: SUCRALFATE 1 GM TABLET PO ONE (23:45)
[2023-05-27] MEDS ORDERED: LIDOCAINE 2% VISCOUS 15 ML UDC PO ONE (23:45)
[2023-05-28] MEDS ORDERED: RX-ONDANSETRON 4 MG ODT (ZOFRAN) PPK #4 PO STA (00:15)
[2023-05-28] MEDS ORDERED: ONDA4TAB11 SL (00:18)
[2023-05-28] MEDS ORDERED: DICY20TA PO (00:18)
--- NOTE | 2023-05-28 08:20 | Diagnostic Imaging Report ---
ABDOMEN/KUB 1VIEW INDICATION: Diffuse abdominal pain COMPARISON: None available. TECHNIQUE: AP view of the abdomen FINDINGS: Nonobstructive bowel gas pattern. No features of free intraperitoneal air, although assessment is suboptimal on supine imaging. No abnormal soft tissue mineralizations. Left basilar opacities are most likely normal pulmonary vasculature, although infection could be present in appropriate setting. IMPRESSION: 1. Potential left basilar pulmonary opacities. Correlation for symptoms of pneumonia suggested. If deemed warranted, PA and lateral radiographs of the chest could be performed for further characterization. 2. No radiographic abnormality within the abdomen itself. Dictated by: Dictated on workstation # [id number]
== END 2023-05-28 00:28 | disposition home or self-care (01) ==
LOC: EDUNIT# 21:21 → ER 21:23
DX: R10.84 Generalized abdominal pain (principal); K58.1 Irritable bowel syndrome with constipation; R11.2 Nausea with vomiting, unspecified; E66.9 Obesity, unspecified; Z87.19 Personal history of other diseases of the digestive system; Z68.42 Body mass index [BMI] 45.0-49.9, adult
CPT/HCPCS: 36415; 74018; 80053; 83690; 85025; 86141